=== PATIENT | male | born 1955 | race Caucasian/White ===

== ENCOUNTER 2019-05-15 06:46 | Day surgery (SDC) | payer OTHER, BC | END 2019-05-15 09:43 | disposition home or self-care (01) | LOC: JASU-ENDO 06:46 ==

== ENCOUNTER 2021-07-03 07:04 | Emergency (ER) | payer OTHER, BC ==
[2021-07-03 07:24] VITALS: BP 117/72; PULSE 89; TEMP 99.1; BMI 39.8
[2021-07-03] MEDS ORDERED: DEXAMETHASONE SOD PHOSPHATE 10 MG/1 ML VIAL IM ONE (07:47)
[2021-07-03] MEDS ORDERED: DEXAMETHASONE SOD PHOSPHATE 10 MG/1 ML VIAL ONE (07:49)
[2021-07-03 08:31] LABS: URIC ACID 8.3 mg/dL (2.6-7.2)
== END 2021-07-03 09:15 | disposition home or self-care (01) ==
LOC: JER 07:04
PROC: 3E023GC Introduction of Other Therapeutic Substance into Muscle, Percutaneous Approach (ICD-10-PCS; principal; 2021-07-03)
DX: M10.031 Idiopathic gout, right wrist (principal); M10.041 Idiopathic gout, right hand
CPT/HCPCS: 36415; 73110-TC-RT-FY; 73130-TC-RT-FY; 84550; 85651; 86140; 96372; 99284-25; J1100

== ENCOUNTER 2023-03-01 04:18 | Day surgery (SDC) | payer OTHER, BC ==
[2023-02-25 11:59] VITALS: BMI 33.1
[~2023-03-01 04:18] MED LIST: BUPIVACAINE HCL/PF 0.75% 10 ML VIAL NR ONE; LIDOCAINE 1% P/F 10 MG/ML VIAL INF ONE
[2023-03-01] MEDS ORDERED: BUPIVACAINE HCL/PF 0.75% 10 ML VIAL NR ONE (12:38)
[2023-03-01] MEDS ORDERED: LIDOCAINE 1% P/F 10 MG/ML VIAL INF ONE (12:38)
[2023-03-01] MEDS ORDERED: ACETAMINOPHEN 500 MG TABLET (FP) PO PRN (13:36)
[2023-03-01 13:39] VITALS: BP 108/73; PULSE 66; RESP 20; TEMP 97.7
== END 2023-03-01 13:35 | disposition home or self-care (01) ==
LOC: JASU-SURG 04:18
PROVIDERS: ATTEND Pain Medicine Pain Medicine
PROC: 3E0T33Z Introduction of Anti-inflammatory into Peripheral Nerves and Plexi, Percutaneous Approach (ICD-10-PCS; 2023-03-01)
PROC: 3E0T3BZ Introduction of Anesthetic Agent into Peripheral Nerves and Plexi, Percutaneous Approach (ICD-10-PCS; principal; 2023-03-01 13:15)
DX: M47.816 Spondylosis without myelopathy or radiculopathy, lumbar region (principal)
CPT/HCPCS: 76000-TC-FY

== ENCOUNTER 2023-03-22 04:10 | Day surgery (SDC) | payer OTHER, BC ==
[2023-03-20 14:25] VITALS: BMI 33.1
[~2023-03-22 04:10] MED LIST changes: -LIDOCAINE 1% P/F 10 MG/ML VIAL INF ONE; +LIDOCAINE HCL 1% PRESERVATIVE FREE - 30ML VIAL IJ ONE
[2023-03-22] MEDS ORDERED: LIDOCAINE HCL/PF 1% SDV 5ML VIAL ONE (07:29)
[2023-03-22] MEDS ORDERED: BUPIVACAINE HCL/PF 0.75% 10 ML VIAL ONE (07:29)
[2023-03-22 10:57] VITALS: RESP 20
[2023-03-22] MEDS ORDERED: BUPIVACAINE HCL/PF 0.75% 10 ML VIAL NR ONE (12:03)
[2023-03-22] MEDS ORDERED: LIDOCAINE HCL 1% PRESERVATIVE FREE - 30ML VIAL IJ ONE (12:03)
[2023-03-22 12:57] VITALS: BP 110/70; PULSE 80; TEMP 97
[2023-03-22] MEDS ORDERED: ACETAMINOPHEN 500 MG TABLET (FP) PO PRN (21:15)
== END 2023-03-22 12:45 | disposition home or self-care (01) ==
LOC: JASU-SURG 04:10
PROVIDERS: ATTEND Pain Medicine Pain Medicine
PROC: 3E0T33Z Introduction of Anti-inflammatory into Peripheral Nerves and Plexi, Percutaneous Approach (ICD-10-PCS; 2023-03-22)
PROC: 3E0T3BZ Introduction of Anesthetic Agent into Peripheral Nerves and Plexi, Percutaneous Approach (ICD-10-PCS; principal; 2023-03-22 12:15)
DX: M47.816 Spondylosis without myelopathy or radiculopathy, lumbar region (principal)
CPT/HCPCS: 76000-TC-FY

== ENCOUNTER 2023-05-24 04:19 | Day surgery (SDC) | payer OTHER, BC ==
[2023-05-08 12:06] VITALS: BMI 32.7
[~2023-05-24 04:19] MED LIST changes: +ACETAMINOPHEN 500 MG TABLET (FP) PO PRN; +DEXAMETHASONE SOD PHOSPHATE 10 MG/1 ML VIAL IVPUSH ONE; -LIDOCAINE HCL 1% PRESERVATIVE FREE - 30ML VIAL IJ ONE; +LIDOCAINE HCL/PF 2% SDV 5ML VIAL INF ONE
[2023-05-24] MEDS ORDERED: ACETAMINOPHEN 500 MG TABLET (FP) PO PRN (11:12)
[2023-05-24 11:47] VITALS: RESP 18
[2023-05-24] MEDS ORDERED: LIDOCAINE HCL 1% PRESERVATIVE FREE - 30ML VIAL IJ ONE (12:35)
[2023-05-24] MEDS ORDERED: LIDOCAINE HCL/PF 2% SDV 5ML VIAL INF ONE (12:48)
[2023-05-24] MEDS ORDERED: DEXAMETHASONE SOD PHOSPHATE 10 MG/1 ML VIAL IVPUSH ONE (12:54)
[2023-05-24] MEDS ORDERED: BUPIVACAINE HCL/PF 0.75% 10 ML VIAL NR ONE (12:54)
[2023-05-24 13:17] VITALS: BP 92/57; PULSE 86; TEMP 98.2
== END 2023-05-24 15:00 | disposition home or self-care (01) ==
LOC: JASU-SURG 04:19
PROVIDERS: ATTEND Pain Medicine Pain Medicine
PROC: 015B3ZZ Destruction of Lumbar Nerve, Percutaneous Approach (ICD-10-PCS; principal; 2023-05-24 12:45)
DX: M47.816 Spondylosis without myelopathy or radiculopathy, lumbar region (principal)
CPT/HCPCS: 76000-TC-FY; J1100

== ENCOUNTER 2023-07-09 04:20 | Day surgery (SDC) | payer OTHER, BC ==
[2023-07-08 11:00] VITALS: BMI 33.3
[2023-07-09] MEDS ORDERED: DEXAMETHASONE SOD PHOSPHATE 10 MG/1 ML VIAL ONE ×2 (07:17→14:10)
[2023-07-09] MEDS ORDERED: BUPIVACAINE HCL/PF 0.75% 10 ML VIAL ONE ×2 (07:17→14:09)
[2023-07-09] MEDS ORDERED: LIDOCAINE HCL/PF 1% SDV 5ML VIAL ONE (07:17)
[2023-07-09] MEDS ORDERED: LIDOCAINE HCL/PF 2% SDV 5ML VIAL ONE (07:17)
[2023-07-09] MEDS ORDERED: ACETAMINOPHEN 500 MG TABLET (FP) PO PRN (08:33)
[2023-07-09] MEDS ORDERED: LIDOCAINE HCL 1% PRESERVATIVE FREE - 30ML VIAL IJ ONE (14:27)
[2023-07-09] MEDS ORDERED: BUPIVACAINE HCL/PF 0.75% 10 ML VIAL NR ONE (14:27)
[2023-07-09] MEDS ORDERED: LIDOCAINE HCL/PF 2% SDV 5ML VIAL INF ONE (14:27)
[2023-07-09] MEDS ORDERED: DEXAMETHASONE SOD PHOSPHATE 10 MG/1 ML VIAL IVPUSH ONE (14:27)
[2023-07-09 15:12] VITALS: BP 115/68; PULSE 91; RESP 16; TEMP 98.6
== END 2023-07-09 15:15 | disposition home or self-care (01) ==
LOC: JASU-SURG 04:20
PROVIDERS: ATTEND Pain Medicine Pain Medicine
PROC: 015B3ZZ Destruction of Lumbar Nerve, Percutaneous Approach (ICD-10-PCS; principal; 2023-07-09 14:15)
DX: M47.816 Spondylosis without myelopathy or radiculopathy, lumbar region (principal)
CPT/HCPCS: 76000-TC-FY; J1100

== ENCOUNTER 2024-11-26 06:49 | Day surgery (SDC) | payer OTHER, BC ==
[2024-11-25 17:03] VITALS: BMI 35.3
[2024-11-26] MEDS: LIDOCAINE HCL 1% PRESERVATIVE FREE - 30ML VIAL IJ ONE ×2 (08:53)
[2024-11-26] MEDS: IOHEXOL 180 MG/1 ML ML IT ONE ×2 (08:54)
[2024-11-26] MEDS: BUPIVACAINE HCL/PF 0.5% (5MG/ML) 10 ML VIAL CAUD ONE ×2 (09:00)
[2024-11-26] MEDS: TRIAMCINOLONE ACETONIDE 40 MG/ML 10 ML VIAL IJ ONE ×2 (09:00)
[2024-11-26 09:50] VITALS: BP 129/83; PULSE 85; RESP 20; TEMP 97.3
[2024-11-26] MEDS ORDERED: ACETAMINOPHEN 500 MG TABLET (FP) PO PRN (17:00)
== END 2024-11-26 09:25 | disposition home or self-care (01) ==
LOC: JASU-SURG 06:49
PROVIDERS: ATTEND Pain Medicine Pain Medicine
PROC: 3E023BZ Introduction of Anesthetic Agent into Muscle, Percutaneous Approach (ICD-10-PCS; 2024-11-26)
PROC: 3E0233Z Introduction of Anti-inflammatory into Muscle, Percutaneous Approach (ICD-10-PCS; principal; 2024-11-26 08:30)
DX: M53.3 Sacrococcygeal disorders, not elsewhere classified (principal)
CPT/HCPCS: 76000-TC-FY

== ENCOUNTER 2025-02-18 06:10 | Day surgery (SDC) | payer OTHER, BC ==
[2025-02-16 16:55] VITALS: BMI 34.7
[2025-02-18] MEDS: DEXAMETHASONE SOD PHOSPHATE 20 MG/5 ML VIAL IM ONE
[2025-02-18 07:31] VITALS: RESP 18
[2025-02-18] MEDS: LIDOCAINE HCL 1% PRESERVATIVE FREE - 30ML VIAL IJ ONE ×2 (08:58)
[2025-02-18] MEDS: IOHEXOL 180 MG/1 ML ML IJ ONE (08:59)
[2025-02-18] MEDS: DEXAMETHASONE SOD PHOSPHATE 10 MG/1 ML VIAL IVPUSH ONE (09:00)
[2025-02-18 09:40] VITALS: BP 120/77; PULSE 79; TEMP 97.6
== END 2025-02-18 09:35 | disposition home or self-care (01) ==
LOC: JASU-SURG 06:10
PROVIDERS: ATTEND Pain Medicine Pain Medicine
PROC: 3E0R3BZ Introduction of Anesthetic Agent into Spinal Canal, Percutaneous Approach (ICD-10-PCS; 2025-02-18)
PROC: 3E0R33Z Introduction of Anti-inflammatory into Spinal Canal, Percutaneous Approach (ICD-10-PCS; principal; 2025-02-18 09:00)
DX: M48.061 Spinal stenosis, lumbar region without neurogenic claudication (principal); M54.16 Radiculopathy, lumbar region
CPT/HCPCS: 76000-TC-FY; J1100

== ENCOUNTER 2025-08-05 06:06 | Day surgery (SDC) | payer OTHER, BC ==
[2025-08-03 07:07] VITALS: BMI 34.5
[2025-08-05 11:51] VITALS: RESP 18
[2025-08-05] MEDS ORDERED: GENTAMICIN SO4 80 MG/2 ML VIAL ONE (12:26)
[2025-08-05] MEDS ORDERED: LIDOCAINE HCL/PF 2% SDV 5ML VIAL ONE (12:26)
[2025-08-05] MEDS ORDERED: VANCOMYCIN 1,000 MG VIAL (RESTRICTED TO ID ONLY) ONE (12:42)
[2025-08-05] MEDS ORDERED: DEXMEDETOMIDINE HCL 200 MCG/2 ML IVPB ONE (14:51)
[2025-08-05] MEDS: ceFAZolin 2 GRAM PREMIX BAG IVPB ONE (14:55)
[2025-08-05] MEDS ORDERED: PROPOFOL 20 ML ONE (14:55)
[2025-08-05] MEDS ORDERED: MIDAZOLAM HCL 2 MG/2 ML SINGLE DOSE VIAL ONE (14:55)
[2025-08-05] MEDS: LIDOCAINE HCL 1% PRESERVATIVE FREE - 30ML VIAL IJ ONE (15:04)
[2025-08-05] MEDS: LIDOCAINE HCL/PF 2% SDV 5ML VIAL INF ONE ×2 (15:05)
[2025-08-05] MEDS: GENTAMICIN 80MG PREMIX BAG IVPB ONE (15:10)
[2025-08-05] MEDS: VANCOMYCIN 1 GM in NS (PRE-DOCKED) 1,000 MG/250 ML (RESTRICTED TO ID ONLY) IVPB ONE (16:00)
[2025-08-05] MEDS ORDERED: ACETAMINOPHEN 500 MG TABLET (FP) PO PRN (16:22)
[2025-08-05] MEDS ORDERED: ONDANSETRON 4 MG/2 ML VIAL IVPUSH PRN (17:12)
[2025-08-05] MEDS ORDERED: LACTATED RINGERS SOLUTION 1,000 ML IV SCH (17:15)
[2025-08-05 18:28] VITALS: BP 125/72; PULSE 75; TEMP 97.9
== END 2025-08-05 18:29 | disposition home or self-care (01) ==
LOC: JASU-SURG 06:06
PROVIDERS: ATTEND Pain Medicine Pain Medicine
PROC: 00HU3MZ Insertion of Neurostimulator Lead into Spinal Canal, Percutaneous Approach (ICD-10-PCS; 2025-08-05)
PROC: 0JH73DZ Insertion of Multiple Array Stimulator Generator into Back Subcutaneous Tissue and Fascia, Percutaneous Approach (ICD-10-PCS; principal; 2025-08-05 12:30)
DX: G89.4 Chronic pain syndrome (principal); M54.16 Radiculopathy, lumbar region
CPT/HCPCS: 63650; 63685; C1767; C1778; 76000-TC-FY; 82962; 94760